=== PATIENT | female | born 1950 | race Caucasian/White ===

== ENCOUNTER 2023-09-10 07:44 | Day surgery (SDC) | payer MEDICARE, BC ==
[~2023-09-10 07:44] MED LIST: AMBIEN5 MG PO; AMITRIPTYLINE H10 MG PO; ATIVAN1 M1 PO; CALCIUM PO; CARAFATE1 GM PO; CARDIZEM CD 180 PO; ELAVIL10 MG PO; FISH OIL1000 MG PO; LISINOPRIL20 MG PO; LOPRESSOR 550 MG/TAB PO; LOPRESSOR12.5 MG PO; LOSARTAN POT50 MG PO; MELATONIN1 M1 PO; MULTIVITAMIN PO; PANTOPRAZOLE SO40 MG PO; SYNTHROID PO; SYNTHROID50 MCG PO; VITAMIN D31000 UNI1 PO; VIVELLE-DOT0.0375 MG TD; ZINC25 MG PO
[2023-09-10] MEDS ORDERED: LACTATED RINGER'S 1,000 ML IV ONE (07:46)
[2023-09-10 09:34] VITALS: BP 158/91
[2023-09-10] MEDS ORDERED: PROPOFOL 200 MG/20 ML VIAL IV ONE (14:24)
[2023-09-10] MEDS ORDERED: GLYCOPYRROLATE 0.2 MG/ML IV ONE (14:24)
== END 2023-09-10 10:01 | disposition home or self-care (01) ==
LOC: ENDO 07:44
PROVIDERS: ATTEND Internal Medicine Gastroenterology
PROC: 0DJD8ZZ Inspection of Lower Intestinal Tract, Via Natural or Artificial Opening Endoscopic (ICD-10-PCS; principal; 2023-09-10)
DX: Z12.11 Encounter for screening for malignant neoplasm of colon (principal); K64.8 Other hemorrhoids; I10 Essential (primary) hypertension; E03.9 Hypothyroidism, unspecified; Z80.0 Family history of malignant neoplasm of digestive organs
CPT/HCPCS: G0105